=== PATIENT | female | born 1995 | race Caucasian/White ===

== ENCOUNTER 2024-11-23 11:54 | Emergency (ER) | payer OTHER ==
[2024-11-23] MEDS ORDERED: DIPHENHYDRAMINE 50 MG/ML VIAL ONE (12:39)
[2024-11-23] MEDS ORDERED: KETOROLAC 30 MG/ML INJ ONE (12:39)
[2024-11-23] MEDS ORDERED: ACETAMINOPHEN 500 MG TAB ONE (12:39)
[2024-11-23] MEDS ORDERED: NA CHLORIDE 0.9% 1,000 ML ONE (12:40)
[2024-11-23] MEDS ORDERED: METOCLOPRAMIDE 10 MG/2mL INJ ONE (12:40)
[2024-11-23 12:46] LABS: Absolute Lymphocytes (CBC) 0.3 K/uL (0.7-4.9); Absolute Monocytes 0.1 K/uL (0.1-1.3); Absolute Neutrophil 0.9 K/uL (1.8-8.0); Basophils % 0.5 % (0-1.3); Eosinophils % 0.9 % (0-4.4); Hematocrit 40.1 % (36.0-45.0); Hemoglobin 13.9 g/dL (12.0-15.0); Lymphocytes % 21.3 % (15.3-44.8); MCH 29.7 pg (27.0-35.0); MCHC 34.8 g/dL (32.0-36.0); MCV 85.4 fL (80-100); MPV 9.6 fL (7.6-11.3); Monocytes % 6.7 % (3.3-12.3); Neutrophils % 70.6 % (41.7-73.7); Nucleated Red Blood Cells % 0.2 % (0-0); Platelets 114 thou/uL (152-406); Red Cell Distribution Width 13.5 % (12.1-15.2)
[2024-11-23 13:09] LABS: Albumin/Globulin Ratio 0.8 (1.1-1.8); Anion Gap 8.2 mEq/L (5.0-15.0); Bilirubin Total 0.5 mg/dL (0.2-1.0); Globulin 3.8 g/dL (2.3-3.5); Potassium 4.2 mEq/L (3.5-5.1); Protein, Total 6.8 g/dL (6.4-8.2)
[2024-11-23 13:12] LABS: Specific Gravity > 1.030 (1.005-1.030); Urine Bacteria None Seen /HPF (<20); Urine Bilirubin 1+ (Negative); Urine Blood 3+ (Negative); Urine Clarity Extremely Turbid (Clear); Urine Color Yellow (Yellow); Urine Culture Reflex Order NOT NEEDED; Urine Glucose NEGATIVE (Negative); Urine Ketones TRACE (Negative); Urine Micro Reflex YN NO BILL MICROSCOPIC; Urine Mucus 3+ /HPF (None Seen); Urine Nitrite NEGATIVE (Negative); Urine Protein 1+ (Negative); Urine Urobilinogen 2+ (Normal); Urine WBC <5 /HPF (<5); Urine WBC Clump Rare /HPF (None Seen); Urine Yeast (Budding) Trace /HPF (None Seen); Urine pH 6.5 (5.0-7.0)
--- NOTE | 2024-11-23 14:10 | RAD REPORT ---
EXAM: Chest Single View HISTORY: FEVER COMPARISON: None. FINDINGS: LUNGS/PLEURA: The lungs are clear. No pleural effusions or pneumothorax. No pulmonary edema. MEDIASTINUM: The mediastinal silhouette is within normal limits. CARDIAC: The cardiac silhouette is within normal limits. UPPER ABDOMEN: No significant abnormality. BONES: No acute abnormality. LINES/TUBES/OTHER: N/A IMPRESSION: No evidence of acute cardiopulmonary disease.
--- NOTE | 2024-11-23 14:33 | RAD REPORT ---
EXAM: CT CHEST, ABDOMEN AND PELVIS WITHOUT CONTRAST CLINICAL INDICATION: Female, 29 years fever, leukopenia TECHNIQUE: CT chest, abdomen and pelvis was performed, with IV contrast, as per department protocol. Axial, sagittal and coronal reconstructions were obtained. One or more of the following dose reduction techniques were used: Automated exposure control, adjustment of the mA and/or kV according to the patient size, and/or iterative reconstruction. Unless otherwise specified, incidental findings do not require dedicated imaging follow-up. [id number]. COMPARISON: No prior exam. FINDINGS: Chest: LOWER NECK: Visualized thyroid gland and soft tissues are normal. Reactive sized bilateral axillary l ymph nodes. LUNGS AND AIRWAYS: Airways are clear. No evidence of airspace or interstitial process.No suspicious a nd/or stable pulmonary nodules. PLEURA: No pleural effusion. No pneumothorax. Hemidiaphragms are normally positioned. MEDIASTINUM AND LYMPH NODES: No mediastinal mass or fluid collection. Normal size mediastinal, hilar, and axillary lymph nodes. THORACIC AORTA: No thoracic aortic aneurysm. PULMONARY ARTERIES: Caliber is within normal limits. HEART: Normal heart size. No coronary calcifications.No significant pericardial effusion. Abdomen/Pelvis UPPER GI: No significant abnormality. LIVER: No significant focal abnormality. GALLBLADDER/BILE DUCTS: No biliary ductal dilatation.? PANCREAS: No mass, ductal dilation, or sarah-pancreatic fluid. SPLEEN: Unremarkable. ADRENALS: No adrenal masses. KIDNEYS AND URETERS: No hydronephrosis.No suspicious renal mass. ABDOMINAL AORTA AND OTHER VESSELS: Normal caliber aorta and IVC. PERITONEUM: Small volume of pelvic free fluid which is likely physiologic. LYMPH NODES: No pathologic lymphadenopathy. ABDOMINAL WALL: Unremarkable SMALL BOWEL/COLON: Small bowel has normal course and caliber. No colonic wall thickening or pericolon ic inflammatory changes. URINARY BLADDER: Underdistended but grossly unremarkable. REPRODUCTIVE ORGANS: IUD. MUSCULOSKELETAL: No acute or suspicious osseous abnormality. ADDITIONAL FINDINGS: None. IMPRESSION: No acute or significant abnormalities in the chest, abdomen, or pelvis. No source of fever identified .
[2024-11-23 15:03] LABS: PT Prothrombin Time 15.4 SECONDS (9.4-12.5); Protime INR 1.47
[2024-11-23 15:29] LABS: Differential Total Cells Count 100; Eosinophils 1 % (0-3); Lymphocytes 28 % (15-42); Monocytes 4 % (0-10); Segmented Neutrophils 67 % (40-80)
[2024-11-23 15:30] LABS: Blood Morphology Comment NOT SEEN (NOT SEEN); Platelet Estimate DECR
--- NOTE | 2024-11-23 16:37 | ER ---
Nurse's Notes [facility] Name: Nola Cano Age: 29 yrs Sex: Female : 1995 Arrival Date: 11/23/2024 Time: 11:54 Bed 16 Private MD: Diagnosis: Headache;Nausea and vomiting;Leukopenia;Viral syndrome;Elevation of transaminases Presentation: 11/23 12:08 Chief complaint: Patient states: Nausea, vomiting, HSU, fever x 3 days, [place] urgent jl7 care swabbed today for flu and covid, both negative. Spouse concerned for dehydration. Coronavirus screen: Client presents with at least one sign or symptom that may indicate coronavirus-19. Ebola Screen: No symptoms or risks identified at this time. Initial Sepsis Screen: Does the patient meet any 2 criteria? No. Patient's initial sepsis screen is negative. Does the patient have a suspected source of infection? No. Patient's initial sepsis screen is negative. Risk Assessment: Do you want to hurt yourself or someone else? Patient reports no desire to harm self or others. Onset of symptoms was November 20, 2024. 12:08 Method Of Arrival: Ambulatory jl7 12:08 Acuity: ARMIN 3 jl7 Triage Assessment: 12:12 General: Appears in no apparent distress. uncomfortable, ill, unkempt, well nourished, jl7 Behavior is calm, cooperative, appropriate for age. Pain: Denies pain. 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 - Infectious Disease History:: Denies. - Social history:: Smoking status: Patient denies any tobacco usage or history of. - Family history:: not pertinent. Screenin:20 [facility] ED Fall Risk Assessment (Adult) History of falling in the last 3 months, kj2 including since admission No falls in past 3 months (0 pts) Confusion or Disorientation No (0 pts) Intoxicated or Sedated No (0 pts) Impaired Gait No (0 pts) Mobility Assist Device Used No (0 pt) Altered Elimination No (0 pt) Score/Fall Risk Level 0 - 2 = Low Risk Maintained a safe environment, Hourly rounding (assess needs \T\ fall precautionary measures) done. Abuse screen: Denies threats or abuse. Denies injuries from another. Nutritional screening: No deficits noted. Tuberculosis screening: No symptoms or risk factors identified. Assessment: 12:20 General: Appears in no apparent distress. Behavior is calm, cooperative. Pain: kj2 Complains of pain in general body aches Pain currently is 5 out of 10 on a pain scale. Neuro: Level of Consciousness is awake, alert, obeys commands, Oriented to person, place, time, situation. Cardiovascular: Patient's skin is warm and dry. Respiratory: Airway is patent Respiratory effort is unlabored. GI: No signs and/or symptoms were reported involving the gastrointestinal system. : No signs and/or symptoms were reported regarding the genitourinary system. 13:20 Reassessment: Patient appears in no apparent distress at this time. Patient and/or kj2 family updated on plan of care and expected duration. Pain level reassessed. Patient is alert, oriented x 3, equal unlabored respirations, skin warm/dry/pink. 14:30 Reassessment: Patient appears in no apparent distress at this time. Patient and/or kj2 family updated on plan of care and expected duration. Pain level reassessed. Patient is alert, oriented x 3, equal unlabored respirations, skin warm/dry/pink. 15:36 Reassessment: Patient appears in no apparent distress at this time. Patient and/or kj2 family updated on plan of care and expected duration. Pain level reassessed. Patient is alert, oriented x 3, equal unlabored respirations, skin warm/dry/pink. 16:22 Reassessment: Patient appears in no apparent distress at this time. Patient and/or kj2 family updated on plan of care and expected duration. Pain level reassessed. Patient is alert, oriented x 3, equal unlabored respirations, skin warm/dry/pink. 16:57 Reassessment: Patient appears in no apparent distress at this time. Patient and/or kj2 family updated on plan of care and expected duration. Pain level reassessed. Patient is alert, oriented x 3, equal unlabored respirations, skin warm/dry/pink. Vital Signs: 12:08 BP 100 / 69; Pulse 93; Resp 17; Temp 98.4(O); Pulse Ox 100% ; Weight 77.11 kg; Height 5 jl7 ft. 4 in. ; Pain 0/10; 13:30 BP 97 / 67; Pulse 80; Resp 18; Pulse Ox 99% on R/A; kj2 14:30 BP 104 / 76; Pulse 83; Resp 18; Pulse Ox 100% on R/A; kj2 15:40 BP 99 / 67; Pulse 78; Resp 18; Pulse Ox 100% on R/A; kj2 16:22 BP 107 / 76; Pulse 73; Resp 18; Pulse Ox 100% on R/A; kj2 16:57 BP 110 / 74; Pulse 70; Resp 20; Temp 98; Pulse Ox 100% on R/A; kj2 12:08 Body Mass Index 29.18 (77.11 kg, 162.56 cm) jl7 12:08 Pain Scale: Adult jl7 ED Course: 11:57 Patient arrived in ED. mr 11:58 Sai Duke MD is Attending Physician. rt 12:12 Triage completed. jl7 12:12 Arm band placed on right wrist. jl7 12:20 Patient has correct armband on for positive identification. Bed in low position. Call kj2 light in reach. Adult w/ patient. Provided Education on: call light. 12:21 Yovana Roland, RN is Primary Nurse. ko1 12:30 Inserted saline lock: 20 gauge in left antecubital area, using aseptic technique. Blood ko1 collected. Flushed with 10 mL NS. 14:04 Chest Single View XRAY In Process Unspecified. EDMS 14:17 CT Chest, Abdomen, Pelvis - W/Contrast In Process Unspecified. EDMS 17:01 No provider procedures requiring assistance completed. kj2 17:01 IV discontinued, intact, bleeding controlled, No redness/swelling at site. Pressure kj2 dressing applied. Administered Medications: 12:35 Drug: Ketorolac IVP 15 mg IVP once Route: IVP; Site: left antecubital; ko1 14:47 Follow up: Response: No adverse reaction kj2 12:35 Drug: Acetaminophen PO 1000 mg PO once Route: PO; ko1 14:46 Follow up: Response: No adverse reaction kj2 12:40 Drug: metoCLOPramide IVP 10 mg IVP once; over 1 to 2 minutes Route: IVP; Site: left ko1 antecubital; 14:47 Follow up: Response: No adverse reaction kj2 12:40 Drug: diphenhydrAMINE IVP 25 mg IVP once Route: IVP; Site: left antecubital; ko1 14:47 Follow up: Response: No adverse reaction kj2 12:40 Drug: NS 0.9% IV 1000 ml IV at 1 bolus Per protocol; to be given as a bolus over 60 ko1 minutes Route: IV; Rate: 1 bolus; Site: left antecubital; 14:47 Follow up: Response: No adverse reaction kj2 Medication: 17:00 VIS not applicable for this client. kj2 Outcome: 16:37 Discharge ordered by . rt 17:01 Discharged to home ambulatory, kj2 17:01 Condition: stable 17:01 Discharge instructions given to patient, family, Instructed on discharge instructions, follow up and referral plans. Demonstrated understanding of instructions, follow-up care, 17:10 Patient left the ED. kj2 Signatures: Dispatcher [employer] EDMS Harmony Vu, Reg Reg mr Kevan Claudio, RN RN jl7 Yovana Roland, RN RN ko1 Sai Duke MD MD rt Anu Nguyen RN RN kj2
--- NOTE | 2024-11-23 16:37 | EDPHYS ---
Physician Documentation [facility] Name: Nola Cano Age: 29 yrs Sex: Female : 1995 Arrival Date: 11/23/2024 Time: 11:54 Bed 16 Private MD: ED Physician Sai Duke HPI: 11/23 13:45 This 29 yrs old Female presents to ER via Ambulatory with complaints of Flu Symptoms. rt 13:45 Patient presents to the ED with fever, headache, nausea, vomiting for about 3 days. rt Reports that she had negative flu, COVID swabs. States that the symptoms have worsened today and they are worried about dehydration. Denies other acute complaints at this time, symptoms are moderate in severity, no other aggravating or alleviating factors.. 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 - Infectious Disease History:: Denies. - Social history:: Smoking status: Patient denies any tobacco usage or history of. - Family history:: not pertinent. ROS: 18:24 Cardiovascular: Negative for chest pain, palpitations, and edema, Respiratory: Negative rt for shortness of breath, cough, wheezing, and pleuritic chest pain, MS/Extremity: Negative for injury and deformity, Skin: Negative for injury, rash, and discoloration, 18:24 Constitutional: Positive for body aches, fever, malaise, 18:24 Neck: Negative for pain with movement, pain at rest, stiffness, 18:24 Abdomen/GI: Positive for nausea and vomiting, 18:24 Neuro: Positive for headache, Negative for altered mental status, Exam: 18:24 Constitutional: This is a well developed, well nourished patient who is awake, alert, rt and in no acute distress. Head/Face: Normocephalic, atraumatic. Chest/axilla: Normal chest wall appearance and motion. Nontender with no deformity. No lesions are appreciated. Cardiovascular: Regular rate and rhythm with a normal S1 and S2. No gallops, murmurs, or rubs. Normal PMI, no JVD. No pulse deficits. Respiratory: Lungs have equal breath sounds bilaterally, clear to auscultation and percussion. No rales, rhonchi or wheezes noted. No increased work of breathing, no retractions or nasal flaring. Abdomen/GI: Soft, non-tender, with normal bowel sounds. No distension or tympany. No guarding or rebound. No evidence of tenderness throughout. 18:24 Neck: Supple, full range of motion, no meningismus, Vital Signs: 12:08 BP 100 / 69; Pulse 93; Resp 17; Temp 98.4(O); Pulse Ox 100% ; Weight 77.11 kg; Height 5 jl7 ft. 4 in. ; Pain 0/10; 13:30 BP 97 / 67; Pulse 80; Resp 18; Pulse Ox 99% on R/A; kj2 14:30 BP 104 / 76; Pulse 83; Resp 18; Pulse Ox 100% on R/A; kj2 15:40 BP 99 / 67; Pulse 78; Resp 18; Pulse Ox 100% on R/A; kj2 16:22 BP 107 / 76; Pulse 73; Resp 18; Pulse Ox 100% on R/A; kj2 16:57 BP 110 / 74; Pulse 70; Resp 20; Temp 98; Pulse Ox 100% on R/A; kj2 12:08 Body Mass Index 29.18 (77.11 kg, 162.56 cm) [facility] 12:08 Pain Scale: Adult jl7 MDM: 12:17 Medical Screening Exam initiated rt 18:24 Differential Diagnosis Flu, viral syndrome, multiple infection. Data reviewed: vital rt signs, nurses notes, lab test result(s), radiologic studies. Consideration of Admission/Observation Escalation of care including admission/observation considered. Discussed leukopenia, transaminitis with the patient. Given lack of other findings, clinical course, I suspect this is from a viral etiology, likely self-limited. I did offer the patient admission to the hospital, she is requesting to be discharged. Patient will follow-up with her primary care for repeat labs and she will return at any point if she develops worsening symptoms.. I considered the following discharge prescriptions or medication management in the emergency department Medications were administered in the Emergency Department. See MAR. Independent interpretation of the following test(s) in the Emergency Department CT Scan: My interpretation is No hepatic lesion seen on interpretation of CT scan images. Counseling: I had a detailed discussion with the patient and/or guardian regarding the historical points, exam findings, and any diagnostic results supporting the discharge/admit diagnosis, lab results, radiology results, the need for outpatient follow up. Response to treatment: the patient's symptoms have markedly improved after treatment. 11/23 12:19 Order name: CBC with Diff; Complete Time: 16:06 rt 11/23 12:19 Order name: CMP; Complete Time: 13:20 rt 11/23 12:19 Order name: UAM; Complete Time: 13:20 rt 11/23 13:36 Order name: Manual Differential; Complete Time: 16:06 EDMS 11/23 13:58 Order name: PT-INR; Complete Time: 16:06 rt 11/23 13:58 Order name: Acetaminophen; Complete Time: 16:06 rt 11/23 13:58 Order name: Hepatitis Panel rt 11/23 13:59 Order name: Blood Culture Adult (2) rt 11/23 13:59 Order name: Lactate w/ 2H reflex if indic.; Complete Time: 16:06 rt 11/23 12:19 Order name: Chest Single View XRAY; Complete Time: 15:01 rt 11/23 13:58 Order name: CT Chest, Abdomen, Pelvis - W/Contrast; Complete Time: 15:01 rt Administered Medications: 12:35 Drug: Ketorolac IVP 15 mg IVP once Route: IVP; Site: left antecubital; ko1 14:47 Follow up: Response: No adverse reaction kj2 12:35 Drug: Acetaminophen PO 1000 mg PO once Route: PO; ko1 14:46 Follow up: Response: No adverse reaction kj2 12:40 Drug: metoCLOPramide IVP 10 mg IVP once; over 1 to 2 minutes Route: IVP; Site: left ko1 antecubital; 14:47 Follow up: Response: No adverse reaction kj2 12:40 Drug: diphenhydrAMINE IVP 25 mg IVP once Route: IVP; Site: left antecubital; ko1 14:47 Follow up: Response: No adverse reaction kj2 12:40 Drug: NS 0.9% IV 1000 ml IV at 1 bolus Per protocol; to be given as a bolus over 60 ko1 minutes Route: IV; Rate: 1 bolus; Site: left antecubital; 14:47 Follow up: Response: No adverse reaction kj2 Disposition Summary: 11/23/24 16:37 Discharge Ordered Notes: Location: Home rt Problem: new rt Symptoms: have improved rt Condition: Stable rt Diagnosis - Headache rt - Nausea and vomiting rt - Leukopenia rt - Viral syndrome rt - Elevation of transaminases rt Followup: rt - With: Private Physician - When: 2 - 3 days - Reason: Followup: rt - With: Emergency Department - When: As needed - Reason: Worsening of condition Discharge Instructions: - Discharge Summary Sheet rt - General Headache Without Cause rt - Leukopenia rt - Liver Function Tests rt - Viral Illness, Adult rt Forms: - Medication Reconciliation Form rt - Antibiotic Education rt - Prescription Opioid Use rt - Patient Portal Instructions rt - Leadership Thank You Letter rt Signatures: Dispatcher [employer] EDKevan Tolliver RN RN jl7 Yovana Roland RN RN ko1 Sai Duke MD MD rt Anu Nguyen RN kj2 Corrections: (The following items were deleted from the chart) 12:19 12:19 CBC+H.LAB.BRZ ordered. EDMS EDMS 12:19 12:19 COMPREHENSIVE METABOLIC PANEL+C.LAB.BRZ ordered. EDMS EDMS 12:19 12:19 Urinalysis W/Microscopic+U.LAB.BRZ ordered. EDMS EDMS 12:20 12:20 Chest Single View+RAD.RAD.BRZ ordered. EDMS EDMS
[2024-11-23 17:38] VITALS: O2SAT 100
[2024-11-23 17:46] VITALS: BP 110/74; TEMP 98
== END 2024-11-23 17:10 | disposition home or self-care (01) ==
LOC: ER 11:54
DX: B34.9 Viral infection, unspecified (principal); D72.819 Decreased white blood cell count, unspecified; R11.2 Nausea with vomiting, unspecified; R74.01 Elevation of levels of liver transaminase levels
CPT/HCPCS: 87040 ×2; 85025; 81001; 36415; 85610; 83605; 80053; 80074; 71260; 74177; 71045; 80143; Q9967; J2765; J1200; J7030